=== PATIENT | male | born 1955 | race Caucasian/White ===

== ENCOUNTER 2018-12-05 19:14 | Emergency (ER) | payer MEDICAID ==
[~2018-12-05] VITALS: Ht 175.3 cm; Wt 99.6 kg
[2018-12-05] MEDS ORDERED: RAMI5CAP57 PO (19:29)
[2018-12-05] MEDS ORDERED: RANI150T23 PO (19:29)
[2018-12-05] MEDS ORDERED: METF500T17 PO (19:29)
[2018-12-05] MEDS ORDERED: CLOP75TA PO (19:29)
[2018-12-05] MEDS ORDERED: ASPI-496 PO (19:29)
[2018-12-05] MEDS ORDERED: CARV3.122 PO (19:29)
[2018-12-05] MEDS ORDERED: ATOR-2 PO (19:29)
[2018-12-05] MEDS ORDERED: GLIM4TAB2 PO (19:29)
[2018-12-05] MEDS ORDERED: ONDANSETRON 2MG/ML, 2ML IVPush ONE (19:30)
[2018-12-05] MEDS ORDERED: MORPHINE SULFATE 4 MG/ML, 1ML IVPush PRN (19:30)
[2018-12-05] MEDS ORDERED: MORPHINE SULFATE 4 MG/ML, 1ML ONE (19:52)
[2018-12-05] MEDS ORDERED: ONDANSETRON 2MG/ML, 2ML ONE (19:52)
--- NOTE | 2018-12-05 19:53 | NUR ---
task rn: pt to ed for left abd pain, bloody urine and increased urinary frequency x "a few days." hx of kidney stones with bilateral lithotripsy. pt states pain feels the same and prior kidney stones. pt connected to monitor. htn 181/101, all other vss on ra. [facility] and [facility] present for assessment. orders received. iv established and labs drawn. ua collected and sent. pt back from ct at this time. will medicate per sep. awaiting results.
[2018-12-05] MEDS ORDERED: OMNIPAQUE 350 MG/ML, 100ML BOTTLE ONE (20:00)
[2018-12-05 20:02] LABS: BASOPHILS # (AUTO) 0.04 x10^3/uL (0-0.1); BASOPHILS % (AUTO) 0 % (0-1); EOSINOPHILS # (AUTO) 0.07 x10^3/uL (0-0.4); EOSINOPHILS % (AUTO) 1 % (1-7); LYMPHOCYTES # (AUTO) 1.94 x10^3/uL (1-3.4); LYMPHOCYTES % (AUTO) 16 % (22-44); MD NO; MEAN CORPUSCULAR HEMOGLOBIN 29.9 pg (27.5-34.5); MEAN CORPUSCULAR HGB CONC 33.1 g/dL (33.2-36.2); MEAN CORPUSCULAR VOLUME 90.4 fL (81-97); MEAN PLATELET VOLUME 8.8 fL (7.4-10.4); MONOCYTES # (AUTO) 0.94 x10^3/uL (0.2-0.8); MONOCYTES % (AUTO) 8 % (2-9); NEUTROPHILS # (AUTO) 9.03 x10^3/uL (1.8-6.8); NEUTROPHILS % (AUTO) 75 % (42-75); PLATELET COUNT 232 x10^3/uL (130-400); RED BLOOD COUNT 5.44 x10^6/uL (4.38-5.82); RED CELL DISTRIBUTION WIDTH 14.8 % (9.4-14.8)
[2018-12-05 20:10] LABS: ALANINE AMINOTRANSFERASE 45 U/L (12-78); ALBUMIN 4.1 g/dL (3.4-5.0); ANION GAP 9 mmol/L (5-15); CALCIUM 9.3 mg/dL (8.5-10.1); CHLORIDE 105 mmol/L (98-107)
[2018-12-05 20:13] LABS: ALKALINE PHOSPHATASE 103 U/L (45-117); BILIRUBIN,TOTAL 0.5 mg/dL (0.2-1.0); TOTAL PROTEIN 8.7 g/dL (6.4-8.2)
--- NOTE | 2018-12-05 20:25 | NUR ---
Pt reports decreased pain after med adminstration, "its just a dull ache now", awaiting ua results.
[2018-12-05 20:41] LABS: MICROSCOPIC INDICATED
[2018-12-05 20:45] LABS: CULTURE INDICATED? YES
[2018-12-05 20:51] VITALS: BP 154/87
--- NOTE | 2018-12-05 21:30 | NUR ---
Pt verbalized understanding of DC instructions/importance of returning to ed for any worsening/concerning s/s and urology follow up. Denies any questions/concerns upon dc.
== END 2018-12-05 21:32 | disposition home or self-care (01) ==
LOC: ED 20:38
DX: N13.2 Hydronephrosis with renal and ureteral calculous obstruction (principal); I10 Essential (primary) hypertension; E11.9 Type 2 diabetes mellitus without complications; E78.00 Pure hypercholesterolemia, unspecified
CPT/HCPCS: 36415; 74176; 80053; 81001; 85025; 87086; 96374; 96375; 99284; J2270; J2405; Q9967